=== PATIENT | male | born 1975 | race Hispanic/Latino ===

== ENCOUNTER 2021-11-22 21:38 | Emergency (ER) | payer BC ==
[2021-11-23 00:31] LABS: #Lymphocytes 0.3 thou/uL (1.20-3.40); #Monocytes 0.1 thou/uL (0.11-0.59); %Lymphocytes 5.6 % (21.0-51.0); %Monocytes 2.2 % (0.0-10.0); %Neutrophils 92.3 % (42.0-75.0); Hemoglobin 12.3 g/dL (14.0-18.0); Mean Corpuscular HGB CONC 32.1 g/dL (32.0-36.0); Mean Corpuscular Hemoglobin 32.2 pg (27.0-31.0); Mean Platelet Volume 7.8 fL (7.4-10.4); Platelet Count 192 thou/uL (130-400); RBC Distribution Width 13.8 % (11.5-14.5); Red Blood Cell (RBC) Count 3.81 mill/uL (4.70-6.10); White Blood Cell (WBC) Count 5.4 thou/uL (4.8-10.8)
[2021-11-23 01:04] LABS: ALT (SGPT) Less than 7 U/L (8-55); AST (SGOT) 30 U/L (5-34); Albumin 3.2 g/dL (3.5-5.0); Alkaline Phosphatase 62 U/L (40-110); Anion Gap 22 mmol/L (10-20); BUN (Urea Nitrogen) 65 mg/dL (8.9-20.6); Bilirubin, Total 0.5 mg/dL (0.2-1.2); Calc. Creatinine Clearance 0 mL/min (70-130); Carbon Dioxide 25 mmol/L (22-29); Chloride 96 mmol/L (98-107); Estimated GFR 5; Globulin 4.2 g/dL (2.4-3.5); Glucose 225 mg/dL (70-105); Potassium 5.1 mmol/L (3.5-5.1); Protein, Total 7.4 g/dL (6.0-8.3); Sodium 138 mmol/L (136-145)
[2021-11-23 02:02] LABS: SARS-CoV-2 NAA Rapid Test Not Detected (NotDetected)
[2021-11-23] MEDS ORDERED: HYDROcodone/Acetaminophen 5/325 mg Tablet ONE (02:02)
== END 2021-11-23 02:19 | disposition home or self-care (01) ==
LOC: ERS 21:38
DX: M32.9 Systemic lupus erythematosus, unspecified (principal); I12.0 Hypertensive chronic kidney disease with stage 5 chronic kidney disease or end stage renal disease; N18.6 End stage renal disease; E03.9 Hypothyroidism, unspecified; Z20.822 Contact with and (suspected) exposure to COVID-19
CPT/HCPCS: 36415; 80053; 85025; 99283

== ENCOUNTER 2021-12-16 11:46 | Inpatient (IN) | payer BC ==
[2021-12-16 12:16] LABS: #Lymphocytes 0.6 thou/uL (1.20-3.40); #Monocytes 0.1 thou/uL (0.11-0.59); #Neutrophils 10.3 thou/uL (1.40-6.50); %Basophils 0.1 % (0.0-1.0); %Monocytes 1.2 % (0.0-10.0); %Neutrophils 93.6 % (42.0-75.0); Hemoglobin 8.6 g/dL (14.0-18.0); Mean Corpuscular Hemoglobin 32.3 pg (27.0-31.0); Mean Platelet Volume 6.8 fL (7.4-10.4); Platelet Count 239 thou/uL (130-400); RBC Distribution Width 14.2 % (11.5-14.5); Red Blood Cell (RBC) Count 2.67 mill/uL (4.70-6.10)
[2021-12-16] MEDS ORDERED: Ketorolac Tromethamine 30 MG/ML VIAL ONE (12:24)
[2021-12-16 12:28] LABS: PTT 36.2 sec (22.9-36.1)
[2021-12-16 12:39] LABS: ALT (SGPT) 7 U/L (8-55); AST (SGOT) 23 U/L (5-34); Albumin 2.6 g/dL (3.5-5.0); Alkaline Phosphatase 58 U/L (40-110); Anion Gap 10 mmol/L (10-20); BUN (Urea Nitrogen) 36 mg/dL (8.9-20.6); Bilirubin, Total 0.8 mg/dL (0.2-1.2); Calc. Creatinine Clearance 0 mL/min (70-130); Carbon Dioxide 36 mmol/L (22-29); Chloride 97 mmol/L (98-107); Estimated GFR 13; Globulin 3.3 g/dL (2.4-3.5); Glucose 72 mg/dL (70-105); Protein, Total 5.9 g/dL (6.0-8.3); Sodium 139 mmol/L (136-145)
[2021-12-16 12:56] LABS: Magnesium 1.8 mg/dL (1.6-2.6)
[2021-12-16 13:50] LABS: Bacteria/HPF 4+ HPF (None Seen); Bilirubin Negative (Negative); Blood, Urine 2+ (Negative); Clarity Extra Turbid (Clear); Glucose, Urine (Dipstick) Normal (Negative); Ketone, Urine Negative (Negative); Leukocyte 500 Leu/uL (Negative); Nitrite Negative (Negative); Protein, Urine (Dipstick) 300 mg/dL (Neg-Trace); Specific Gravity, Urine 1.011 (1.002-1.036); Squamous Epithelial None Seen HPF (0-3); Urobilinogen Normal mg/dL (Less than 2); WBC/HPF Greater than 50 HPF (0-3); pH, Urine 7.5 (5.0-9.0)
[2021-12-16 16:28] VITALS: BMI 22.0
[2021-12-16 17:29] LABS: SARS-CoV-2 NAA Rapid Test Not Detected (NotDetected)
[2021-12-17] MEDS ORDERED: Ondansetron PF 4 MG/2 ML Vial IVP PRN (01:25)
[2021-12-17 01:50] LABS: #Lymphocytes 0.3 thou/uL (1.20-3.40); #Monocytes 0.3 thou/uL (0.11-0.59); #Neutrophils 8.8 thou/uL (1.40-6.50); %Eosinophils 0.1 % (0.0-10.0); %Lymphocytes 3.6 % (21.0-51.0); %Monocytes 2.9 % (0.0-10.0); %Neutrophils 93.4 % (42.0-75.0); Hemoglobin 7.9 g/dL (14.0-18.0); Mean Corpuscular HGB CONC 31.8 g/dL (32.0-36.0); Mean Corpuscular Hemoglobin 32.8 pg (27.0-31.0); Mean Platelet Volume 6.9 fL (7.4-10.4); Platelet Count 209 thou/uL (130-400); RBC Distribution Width 14.3 % (11.5-14.5); White Blood Cell (WBC) Count 9.4 thou/uL (4.8-10.8)
[2021-12-17] MEDS ORDERED: Polyethylene Glycol 3350 17 GM Packet PO SCH (02:00)
[2021-12-17 02:07] LABS: Iron Less than 8 ug/dL (65-175); Iron Binding Capacity, Total 133 mcg/dL (261-462)
[2021-12-17] MEDS: HYDROcodone/Acetaminophen 5/325 mg Tablet PO PRN ×2 (02:42→07:59)
[2021-12-17 02:59] LABS: Anion Gap 16 mmol/L (10-20); BUN (Urea Nitrogen) 51 mg/dL (8.9-20.6); Calc. Creatinine Clearance 12 mL/min (70-130); Calcium 7.3 mg/dL (7.8-10.44); Carbon Dioxide 31 mmol/L (22-29); Chloride 98 mmol/L (98-107); Estimated GFR 10; Glucose 74 mg/dL (70-105); Potassium 5.5 mmol/L (3.5-5.1); Sodium 139 mmol/L (136-145)
[2021-12-17] MEDS ORDERED: Piperacillin/Tazobactam 3.375 GM in Sodium Chloride 0.9% 100 ML IVPB SCH (07:30)
[2021-12-17] MEDS: Senokot S 8.6-50 MG TAB PO SCH ×2 (08:01→20:09)
[2021-12-17] MEDS: Ferrous Sulfate 325 MG TAB PO SCH ×3 (08:01→18:23)
[2021-12-17] MEDS: Calcium Acetate 667 MG CAP PO SCH ×3 (08:01→18:23)
[2021-12-17] MEDS: Sevelamer Carbonate 800 MG TAB PO SCH ×2 (08:01→17:02)
[2021-12-17] MEDS: predniSONE 20 MG TAB PO SCH (08:01)
[2021-12-17 12:12] LABS: Hemoglobin 8.4 g/dL (14.0-18.0)
[2021-12-17 12:46] LABS: HBSAg Index 0.27 S/CO (0-0.99); Hep B Surf Ag Non-Reactive S/CO (NonReactive)
[2021-12-17] MEDS: Piperacillin/Tazobactam 3.375 GM in Sodium Chloride 0.9% 100 ML IVPB SCH (15:28)
[2021-12-17 20:14] LABS: Hemoglobin 8.3 g/dL (14.0-18.0)
[2021-12-18] MEDS: Piperacillin/Tazobactam 3.375 GM in Sodium Chloride 0.9% 100 ML IVPB SCH ×3 (00:28→22:54)
[2021-12-18] MEDS: Levothyroxine Sodium 125 MCG TAB PO SCH (05:38)
[2021-12-18 05:57] LABS: #Lymphocytes 0.5 thou/uL (1.20-3.40); #Monocytes 0.3 thou/uL (0.11-0.59); %Eosinophils 0.1 % (0.0-10.0); %Lymphocytes 7.8 % (21.0-51.0); %Monocytes 5.9 % (0.0-10.0); %Neutrophils 86.3 % (42.0-75.0); Mean Corpuscular HGB CONC 31.1 g/dL (32.0-36.0); Mean Corpuscular Hemoglobin 31.7 pg (27.0-31.0); Platelet Count 207 thou/uL (130-400); RBC Distribution Width 13.8 % (11.5-14.5); Red Blood Cell (RBC) Count 2.51 mill/uL (4.70-6.10); White Blood Cell (WBC) Count 5.8 thou/uL (4.8-10.8)
[2021-12-18 06:03] LABS: Anion Gap 13 mmol/L (10-20); BUN (Urea Nitrogen) 43 mg/dL (8.9-20.6); Calc. Creatinine Clearance 13 mL/min (70-130); Calcium 7.6 mg/dL (7.8-10.44); Carbon Dioxide 32 mmol/L (22-29); Chloride 98 mmol/L (98-107); Estimated GFR 11; Glucose 77 mg/dL (70-105); Potassium 4.7 mmol/L (3.5-5.1); Sodium 138 mmol/L (136-145)
[2021-12-18] MEDS: Ferrous Sulfate 325 MG TAB PO SCH ×3 (09:21→16:22)
[2021-12-18] MEDS: Calcium Acetate 667 MG CAP PO SCH ×3 (09:21→16:22)
[2021-12-18] MEDS: Senokot S 8.6-50 MG TAB PO SCH ×2 (09:21→22:55)
[2021-12-18] MEDS: Sevelamer Carbonate 800 MG TAB PO SCH ×2 (09:21→16:22)
[2021-12-18] MEDS: Polyethylene Glycol 3350 17 GM Packet PO SCH (09:21)
[2021-12-18] MEDS: predniSONE 20 MG TAB PO SCH (09:21)
[2021-12-18] MEDS ORDERED: Epoetin (ESRD) 10,000 UNITS/ML VIAL SC SCH ×2 (09:30→12:00)
[2021-12-18] MEDS: HYDROcodone/Acetaminophen 5/325 mg Tablet PO PRN (11:44)
[2021-12-19] MEDS: Levothyroxine Sodium 125 MCG TAB PO SCH (05:26)
[2021-12-19 11:13] LABS: Hemoglobin 8.7 g/dL (14.0-18.0); Mean Corpuscular HGB CONC 31.8 g/dL (32.0-36.0); Mean Corpuscular Hemoglobin 32.1 pg (27.0-31.0); Mean Platelet Volume 6.9 fL (7.4-10.4); Platelet Count 251 thou/uL (130-400); RBC Distribution Width 13.5 % (11.5-14.5); White Blood Cell (WBC) Count 4.7 thou/uL (4.8-10.8)
[2021-12-19] MEDS: Calcium Acetate 667 MG CAP PO SCH ×3 (11:22→17:24)
[2021-12-19] MEDS: Senokot S 8.6-50 MG TAB PO SCH ×2 (11:22→20:40)
[2021-12-19] MEDS: Sevelamer Carbonate 800 MG TAB PO SCH ×2 (11:22→17:24)
[2021-12-19] MEDS: Ferrous Sulfate 325 MG TAB PO SCH ×3 (11:22→17:24)
[2021-12-19 11:23] LABS: Anion Gap 14 mmol/L (10-20); BUN (Urea Nitrogen) 34 mg/dL (8.9-20.6); Calc. Creatinine Clearance 18 mL/min (70-130); Calcium 7.8 mg/dL (7.8-10.44); Carbon Dioxide 29 mmol/L (22-29); Chloride 98 mmol/L (98-107); Estimated GFR 16; Glucose 106 mg/dL (70-105); Potassium 3.9 mmol/L (3.5-5.1); Sodium 137 mmol/L (136-145)
[2021-12-19 11:28] LABS: Band 9 % (5-11); Eosinophils 2 % (0-10); Lymphocytes 9 % (21-51); MDiff Complete? YES; Macrocytosis SLIGHT = 6-15 cells (100X) (0-5/hpf); Monocytes 5 % (0-10); Myelocyte 1 % (0-0); Neutrophil 74 % (42-75); Ovalocytes SLIGHT = 2-5 cells (100X) (0-1/hpf); Platelet Morphology Comment Appears Adequate; Polychromasia SLIGHT = 2-3 cells (100X) (0-2/hpf)
[2021-12-19] MEDS: Piperacillin/Tazobactam 3.375 GM in Sodium Chloride 0.9% 100 ML IVPB SCH (13:05)
[2021-12-19] MEDS: Polyethylene Glycol 3350 17 GM Packet PO SCH (14:22)
[2021-12-19] MEDS: predniSONE 20 MG TAB PO SCH (14:22)
[2021-12-20] MEDS: Piperacillin/Tazobactam 3.375 GM in Sodium Chloride 0.9% 100 ML IVPB SCH ×3 (00:35→23:48)
[2021-12-20] MEDS: Levothyroxine Sodium 125 MCG TAB PO SCH (05:35)
[2021-12-20] MEDS: Polyethylene Glycol 3350 17 GM Packet PO SCH (08:24)
[2021-12-20] MEDS: Sevelamer Carbonate 800 MG TAB PO SCH ×2 (08:25→17:40)
[2021-12-20] MEDS: Senokot S 8.6-50 MG TAB PO SCH ×2 (08:25→21:43)
[2021-12-20] MEDS: predniSONE 20 MG TAB PO SCH (08:25)
[2021-12-20] MEDS: Calcium Acetate 667 MG CAP PO SCH ×3 (08:25→17:40)
[2021-12-20] MEDS: Ferrous Sulfate 325 MG TAB PO SCH ×3 (08:25→17:41)
[2021-12-20] MEDS ORDERED: cefTRIAXone\\ROCEPHIN 2 GM in Sodium Chloride 0.9% 100 ML IVPB SCH (08:45)
[2021-12-20] MEDS: Acetaminophen 325 MG TAB PO PRN (21:43)
[2021-12-21] MEDS: Levothyroxine Sodium 125 MCG TAB PO SCH (06:00)
[2021-12-21] MEDS: Sevelamer Carbonate 800 MG TAB PO SCH ×2 (08:02→16:02)
[2021-12-21] MEDS: Calcium Acetate 667 MG CAP PO SCH ×3 (08:03→16:02)
[2021-12-21] MEDS: predniSONE 20 MG TAB PO SCH (08:03)
[2021-12-21] MEDS: Ferrous Sulfate 325 MG TAB PO SCH ×3 (08:03→16:02)
[2021-12-21] MEDS: Polyethylene Glycol 3350 17 GM Packet PO SCH (08:03)
[2021-12-21] MEDS: Senokot S 8.6-50 MG TAB PO SCH ×2 (08:03→21:26)
[2021-12-21] MEDS: Piperacillin/Tazobactam 3.375 GM in Sodium Chloride 0.9% 100 ML IVPB SCH ×2 (13:38→23:33)
[2021-12-21] MEDS: Acetaminophen 325 MG TAB PO PRN (21:26)
[2021-12-22] MEDS: Levothyroxine Sodium 125 MCG TAB PO SCH (06:07)
[2021-12-22 08:05] VITALS: BP 151/88; TEMP 98.3
[2021-12-22] MEDS: Sevelamer Carbonate 800 MG TAB PO SCH (08:57)
[2021-12-22] MEDS: Polyethylene Glycol 3350 17 GM Packet PO SCH (08:57)
[2021-12-22] MEDS: Calcium Acetate 667 MG CAP PO SCH ×2 (08:58→11:33)
[2021-12-22] MEDS: predniSONE 20 MG TAB PO SCH (08:58)
[2021-12-22] MEDS: Senokot S 8.6-50 MG TAB PO SCH (08:58)
[2021-12-22] MEDS: Ferrous Sulfate 325 MG TAB PO SCH ×2 (08:58→11:33)
[2021-12-22] MEDS: Piperacillin/Tazobactam 3.375 GM in Sodium Chloride 0.9% 100 ML IVPB SCH (11:33)
== END 2021-12-22 16:47 | disposition home or self-care (01) | DRG 871 ==
LOC: ERS 11:46 → ERHOLD 14:40 → MSONC 19:32 → T4-B 12-18 07:33
PROVIDERS: ADMIT Internal Medicine; ATTEND Internal Medicine
PROC: 3E03329 Introduction of Other Anti-infective into Peripheral Vein, Percutaneous Approach (ICD-10-PCS; principal; 2021-12-16)
PROC: 5A1D70Z Performance of Urinary Filtration, Intermittent, Less than 6 Hours Per Day (ICD-10-PCS; 2021-12-17)
DX: A41.51 Sepsis due to Escherichia coli [E. coli] (principal); N18.6 End stage renal disease; I12.0 Hypertensive chronic kidney disease with stage 5 chronic kidney disease or end stage renal disease; N12 Tubulo-interstitial nephritis, not specified as acute or chronic; Z20.822 Contact with and (suspected) exposure to COVID-19; D63.1 Anemia in chronic kidney disease; M32.9 Systemic lupus erythematosus, unspecified; E03.9 Hypothyroidism, unspecified; E87.5 Hyperkalemia; Z83.3 Family history of diabetes mellitus; Z99.2 Dependence on renal dialysis; Z88.1 Allergy status to other antibiotic agents; Z88.2 Allergy status to sulfonamides; Z79.899 Other long term (current) drug therapy; Z79.890 Hormone replacement therapy; Z79.52 Long term (current) use of systemic steroids; Z98.890 Other specified postprocedural states; Z80.9 Family history of malignant neoplasm, unspecified
CPT/HCPCS: 36415; 74176; 80048; 80053; 81003; 81015; 82274; 83540; 83550; 83605; 83735; 83880; 84145; 85025; 85610; 85730; 86850; 86900; 86901; 87040; 87077; 87086; 87149; 87186; 87340; 90935; 93005; 96365; 96366; 96375; G0257; J1885; J1956; J2543; J3490; J7512; Q4081; U0002

== ENCOUNTER 2022-01-30 12:14 | Inpatient (IN) | payer BC ==
[2022-01-30 13:12] LABS: #Lymphocytes 0.5 thou/uL (1.20-3.40); #Monocytes 0.1 thou/uL (0.11-0.59); #Neutrophils 1.8 thou/uL (1.40-6.50); %Eosinophils 0.1 % (0.0-10.0); %Lymphocytes 21.3 % (21.0-51.0); %Monocytes 5.2 % (0.0-10.0); %Neutrophils 73.3 % (42.0-75.0); Hemoglobin 9.5 g/dL (14.0-18.0); Mean Corpuscular HGB CONC 31.1 g/dL (32.0-36.0); Mean Corpuscular Hemoglobin 31.4 pg (27.0-31.0); Mean Platelet Volume 7.9 fL (7.4-10.4); Platelet Count 150 thou/uL (130-400); RBC Distribution Width 14.4 % (11.5-14.5); Red Blood Cell (RBC) Count 3.04 mill/uL (4.70-6.10); White Blood Cell (WBC) Count 2.5 thou/uL (4.8-10.8)
[2022-01-30 13:40] LABS: ALT (SGPT) Less than 7 U/L (8-55); AST (SGOT) 25 U/L (5-34); Albumin 2.8 g/dL (3.5-5.0); Alkaline Phosphatase 64 U/L (40-110); Anion Gap 13 mmol/L (10-20); BUN (Urea Nitrogen) 26 mg/dL (8.9-20.6); Bilirubin, Total 0.5 mg/dL (0.2-1.2); CK (CPK) 52 U/L (30-200); Calc. Creatinine Clearance 0 mL/min (70-130); Calcium 8.4 mg/dL (7.8-10.44); Carbon Dioxide 30 mmol/L (22-29); Chloride 98 mmol/L (98-107); Estimated GFR 10; Globulin 3.8 g/dL (2.4-3.5); Glucose 83 mg/dL (70-105); Potassium 3.9 mmol/L (3.5-5.1); Protein, Total 6.6 g/dL (6.0-8.3); Sodium 137 mmol/L (136-145)
[2022-01-30] MEDS ORDERED: Acetaminophen 500 MG TAB ONE ×2 (14:34→15:53)
[2022-01-30] MEDS ORDERED: Morphine 4 MG/ML VIAL ONE (15:52)
[2022-01-30] MEDS ORDERED: predniSONE 20 MG TAB ONE ×2 (15:53→15:55)
[2022-01-30 17:38] LABS: SARS-CoV-2 NAA Rapid Test Not Detected (NotDetected)
[2022-01-30] MEDS ORDERED: Piperacillin/Tazobactam 3.375 GM VIAL ONE (18:02)
[2022-01-30 20:22] VITALS: BMI 22.5
[2022-01-30] MEDS ORDERED: Acetaminophen 325 MG TAB PO PRN (20:54)
[2022-01-30] MEDS ORDERED: Zolpidem Tartrate 5 MG TAB PO PRN (20:54)
[2022-01-30] MEDS ORDERED: Ondansetron PF 4 MG/2 ML Vial IVP PRN (20:54)
[2022-01-30] MEDS ORDERED: HYDROcodone/Acetaminophen 7.5/325 mg Tablet PO PRN (20:54)
[2022-01-30] MEDS ORDERED: hydrALAZINE 20 MG/ML VIAL SLOW IVP PRN (20:57)
[2022-01-30] MEDS: Heparin 5,000 UNITS/ML VIAL SC SCH (21:29)
[2022-01-30] MEDS ORDERED: Vancomycin Hemodialysis Sliding Scale FS SCH (21:30)
[2022-01-30] MEDS ORDERED: VANCOMYCIN 1.25 GM/250 ML BAG 1.25 GM in Premix Bag 1 BAG IVPB SCH (22:00)
[2022-01-30 23:24] LABS: Complement-C4 5.9 mg/dL (15-53)
[2022-01-30] MEDS ORDERED: methylPREDNISolone Sod Succ 40 MG VIAL IVP SCH (23:59)
[2022-01-31 00:07] LABS: Bacteria/HPF None Seen HPF (None Seen); Bilirubin Negative (Negative); Blood, Urine Negative (Negative); Clarity Clear (Clear); Glucose, Urine (Dipstick) Normal (Negative); Ketone, Urine Negative (Negative); Leukocyte Negative Leu/uL (Negative); Nitrite Negative (Negative); Protein, Urine (Dipstick) 100 mg/dL (Neg-Trace); RBC/HPF 0-3 HPF (0-3); Squamous Epithelial None Seen HPF (0-3); Urobilinogen Normal mg/dL (Less than 2); WBC/HPF 0-3 HPF (0-3); pH, Urine 8.5 (5.0-9.0)
[2022-01-31] MEDS: methylPREDNISolone Sod Succ 40 MG VIAL IVP SCH ×5 (00:40→23:41)
[2022-01-31] MEDS: Levothyroxine Sodium 125 MCG TAB PO SCH (05:08)
[2022-01-31 05:27] LABS: #Lymphocytes 0.3 thou/uL (1.20-3.40); #Monocytes 0.1 thou/uL (0.11-0.59); #Neutrophils 1.5 thou/uL (1.40-6.50); %Eosinophils 0.3 % (0.0-10.0); %Lymphocytes 16.7 % (21.0-51.0); %Monocytes 2.4 % (0.0-10.0); %Neutrophils 80.6 % (42.0-75.0); Hemoglobin 8.8 g/dL (14.0-18.0); Mean Corpuscular HGB CONC 31.1 g/dL (32.0-36.0); Mean Corpuscular Hemoglobin 31.3 pg (27.0-31.0); Platelet Count 123 thou/uL (130-400); RBC Distribution Width 13.9 % (11.5-14.5); White Blood Cell (WBC) Count 1.9 thou/uL (4.8-10.8)
[2022-01-31 05:49] LABS: Anion Gap 14 mmol/L (10-20); BUN (Urea Nitrogen) 39 mg/dL (8.9-20.6); Calc. Creatinine Clearance 10 mL/min (70-130); Carbon Dioxide 28 mmol/L (22-29); Chloride 101 mmol/L (98-107); Estimated GFR 8; Glucose 127 mg/dL (70-105); Potassium 5.1 mmol/L (3.5-5.1); Sodium 138 mmol/L (136-145)
[2022-01-31] MEDS: Sevelamer Carbonate 800 MG TAB PO SCH ×2 (09:48→16:53)
[2022-01-31] MEDS: Calcium Acetate 667 MG CAP PO SCH ×3 (09:49→16:54)
[2022-01-31] MEDS: NIFEdipine XL 90 MG TAB PO SCH (09:50)
[2022-01-31] MEDS: Lisinopril 10 MG TAB PO SCH (09:50)
[2022-01-31] MEDS: Furosemide 40 MG TAB PO SCH (09:50)
[2022-01-31] MEDS: Heparin 5,000 UNITS/ML VIAL SC SCH ×2 (09:52→21:34)
[2022-01-31] MEDS ORDERED: Mycophenolate 250 MG CAP PO SCH (12:15)
[2022-02-01] MEDS: Levothyroxine Sodium 125 MCG TAB PO SCH (05:17)
[2022-02-01] MEDS: methylPREDNISolone Sod Succ 40 MG VIAL IVP SCH ×4 (05:17→23:41)
[2022-02-01] MEDS ORDERED: Mycophenolate 250 MG CAP PO SCH (09:00)
[2022-02-01 09:02] LABS: Vancomycin, Random 18.9 ug/mL (See Comment)
[2022-02-01 09:25] LABS: HBSAB Concentration Less than 8.00 mIU/mL; HBSAg Index 0.29 S/CO (0-0.99); Hep B Surf AB Non-Reactive (NonReactive); Hep B Surf Ag Non-Reactive S/CO (NonReactive)
[2022-02-01] MEDS: Heparin 5,000 UNITS/ML VIAL SC SCH ×2 (13:37→21:04)
[2022-02-01] MEDS: NIFEdipine XL 90 MG TAB PO SCH (13:37)
[2022-02-01] MEDS: Sevelamer Carbonate 800 MG TAB PO SCH ×2 (13:38→17:41)
[2022-02-01] MEDS: Lisinopril 10 MG TAB PO SCH (13:38)
[2022-02-01] MEDS: Furosemide 40 MG TAB PO SCH (13:39)
[2022-02-01] MEDS: Calcium Acetate 667 MG CAP PO SCH ×3 (13:40→17:41)
[2022-02-01 16:03] LABS: ANA Symphony (Qualitative) POSITIVE (Negative); ANA Symphony (Quantitative) 8.6 Ratio (< 0.7 Negative); CENP IgG Antibody 1.2 EliAU/mL (<7 Negative); Jo-1 IgG Antibody 0.5 EliAU/mL (<7 Negative); RNP70 IgG Antibody 1.3 EliAU/mL (<7 Negative); SSA/Ro IgG Antibody 0.8 EliAU/mL (<7 Negative); SSB/La IgG Antibody 0.5 EliAU/mL (<7 Negative); Scleroderma-70 IgG Antibody 2.3 EliAU/mL (<7 Negative)
[2022-02-01] MEDS ORDERED: Vancomycin HCl 250 MG in Sodium Chloride 0.9% 100 ML IVPB SCH (17:00)
[2022-02-02] MEDS: methylPREDNISolone Sod Succ 40 MG VIAL IVP SCH ×2 (06:00→12:24)
[2022-02-02] MEDS: Levothyroxine Sodium 125 MCG TAB PO SCH (06:00)
[2022-02-02] MEDS: Calcium Acetate 667 MG CAP PO SCH ×3 (09:42→17:00)
[2022-02-02] MEDS: Furosemide 40 MG TAB PO SCH (09:43)
[2022-02-02] MEDS: Sevelamer Carbonate 800 MG TAB PO SCH ×2 (09:43→17:00)
[2022-02-02] MEDS: NIFEdipine XL 90 MG TAB PO SCH (09:43)
[2022-02-02] MEDS: Lisinopril 10 MG TAB PO SCH (09:43)
[2022-02-02] MEDS: Heparin 5,000 UNITS/ML VIAL SC SCH (09:43)
[2022-02-02 16:09] VITALS: BP 131/65; TEMP 98.1
== END 2022-02-02 17:15 | disposition home or self-care (01) | DRG 545 ==
LOC: ERS 12:14 → 2SW 18:27 → OBSVTOIN 02-01 16:07
PROVIDERS: ADMIT Hospitalist; ATTEND Hospitalist
PROC: 5A1D70Z Performance of Urinary Filtration, Intermittent, Less than 6 Hours Per Day (ICD-10-PCS; principal; 2022-02-01)
DX: M32.9 Systemic lupus erythematosus, unspecified (principal); N18.6 End stage renal disease; I12.0 Hypertensive chronic kidney disease with stage 5 chronic kidney disease or end stage renal disease; D84.821 Immunodeficiency due to drugs; D70.9 Neutropenia, unspecified; T38.0X5A Adverse effect of glucocorticoids and synthetic analogues, initial encounter; Z20.822 Contact with and (suspected) exposure to COVID-19; D63.1 Anemia in chronic kidney disease; M06.9 Rheumatoid arthritis, unspecified; E03.9 Hypothyroidism, unspecified; Z21 Asymptomatic human immunodeficiency virus [HIV] infection status; R50.81 Fever presenting with conditions classified elsewhere; Z99.2 Dependence on renal dialysis; Z88.2 Allergy status to sulfonamides; Z88.1 Allergy status to other antibiotic agents; Z79.890 Hormone replacement therapy; Z79.899 Other long term (current) drug therapy; Z79.51 Long term (current) use of inhaled steroids
CPT/HCPCS: 36415; 71045; 80048; 80053; 80202; 81001; 82550; 83605; 84484; 85025; 85652; 86038; 86140; 86160; 86225; 86235; 86706; 87040; 87340; 90935; 93005; 94760; 96372; 96376; G0257; G0378; J1644; J2270; J2543; J2920; J3370; J3490; J7512; J7517